=== PATIENT | male | born 1955 | race Caucasian/White ===

== ENCOUNTER → 2016-04-14 | Outpatient (CLI) | payer MEDICARE ==
[2015-05-31 09:24] VITALS: BP 137/77
[~2016-04-14] MED LIST: ALBU0.63 NEB; AMLO5TAB2 PO; ASPI-482 PO; FLUT12AE IH; HYDR-2672 PO; INSU100I13 SQ; INSU100I17 SQ; LOSA100T6 PO; MULT-208 PO; OMEP20CA9 PO; PROAIR HFA8.5 GM INH
--- NOTE | 2016-04-14 12:11 | RAD ---
PQRS Compliance Statement: One or more of the following individualized dose reduction techniques were utilized for this examination: 1. Automated exposure control 2. Adjustment of the mA and/or kV according to patient size 3. Use of iterative reconstruction technique CT of the chest without contrast, 04/14/2016: History: Chronic cough, shortness of breath, smoking history Noncontrast scans were obtained as requested. There is calcific plaquing of the thoracic aorta without evidence of any present. Several coronary artery calcifications are noted. The heart is of normal size. Several small mediastinal lymph nodes are seen without evidence of pathologic enlargement. There is a soft tissue mass in the anterior aspect of the left upper lobe abutting the pleura and the lateral aspect of the superior mediastinum. There is a small internal lucency suggesting cavitation. There are no air bronchograms within this mass. This process measures approximately 9.4 cm in greatest width, 5 cm AP and 5.4 cm in craniocaudad extent. There are minimal adjacent streaky and groundglass opacities. This process extends down to the anterior superior aspect of the left hilum. No definite underlying hilar mass or separate adenopathy is seen. No other pulmonary mass is seen. The right lung is clear. There is no evidence of pleural fluid. There are mild scattered degenerative changes in the spine. Limited views of the upper abdomen demonstrate splenomegaly. The hepatic contour appears irregular suggesting cirrhosis. IMPRESSION: 1. Large peripheral left upper lobe pulmonary mass suggesting a lung malignancy. Dense consolidation on an inflammatory basis or a large pulmonary infarct are less likely possibilities 2. Calcific plaquing of the aorta and coronary arteries. 3. Splenomegaly. 4. Hepatic cirrhosis.
== END | disposition home or self-care (01) ==
LOC: CT 07:53
PROVIDERS: ATTEND Internal Medicine Pulmonary Disease
DX: Z12.9 Encounter for screening for malignant neoplasm, site unspecified (principal); R05 Cough; I25.10 Atherosclerotic heart disease of native coronary artery without angina pectoris; R16.1 Splenomegaly, not elsewhere classified; K74.60 Unspecified cirrhosis of liver; R06.02 Shortness of breath
CPT/HCPCS: 71250

== ENCOUNTER → 2016-05-30 | Outpatient (CLI) | payer MEDICARE ==
[2015-05-31 09:24] VITALS: BP 137/77
--- NOTE | 2016-05-30 16:27 | RAD ---
CT of the chest without contrast, 05/30/2016: History: Follow-up lung lesion Noncontrast scans were obtained as requested and compared to a study from 04/14/2016. The abnormal densities in the anterior aspect of the left upper lobe have regressed. This portion of the lung is better aerated. The residual density is discoid in configuration extending from the hilum to the pleura anteriorly. There is minimal atelectasis posterolaterally in the left base. No significant consolidation is identified in the left lower lobe or right lung. No pleural fluid is present. There is mild calcific plaquing of the thoracic aorta minimal coronary artery calcification is present. Small mediastinal lymph nodes are seen without evidence of pathologic enlargement. The hilum cannot be optimally evaluated in the absence of vascular opacification. The central bronchi are widely patent. Again noted is splenomegaly with irregularity of the hepatic contour suggesting hepatic cirrhosis. IMPRESSION: 1. Improving left upper lobe consolidation compatible with resolving pneumonia or a pulmonary infarct. Underlying neoplasm cannot be entirely excluded. 2. No new abnormality is detected. PQRS Compliance Statement: One or more of the following individualized dose reduction techniques were utilized for this examination: 1. Automated exposure control 2. Adjustment of the mA and/or kV according to patient size 3. Use of iterative reconstruction technique
== END | disposition home or self-care (01) ==
LOC: CT 15:11
PROVIDERS: ATTEND Internal Medicine Pulmonary Disease
DX: R91.1 Solitary pulmonary nodule (principal)
CPT/HCPCS: 71250

== ENCOUNTER → 2016-10-02 | Outpatient (CLI) | payer BC ==
[2015-05-31 09:24] VITALS: BP 137/77
[~2016-10-02] MED LIST changes: -HYDR-2672 PO; +HYDR-2766 PO
--- NOTE | 2016-10-02 08:40 | RAD ---
Indication:Right-sided abdominal pain Grayscale images of the abdomen were obtained. Comparison none Liver:The contour the liver has a somewhat nodular appearance compatible with cirrhosis. There is a soft tissue mass measuring approximately 4 cm in greatest dimension adjacent to the liver. This probably reflects an accessory lobe. A mass is not entirely excluded but is felt less likely. Further imaging evaluation of the abdomen could be obtained with CT, ideally with IV contrast. Gallbladder:The patient is status post cholecystectomy. The common bile duct diameter of approximately 8 mm is within normal limits given the postcholecystectomy state Spleen:Enlarged. This, in conjunction with the liver findings is compatible with cirrhosis and associated portal hypertension Pancreas:The head and visualized proximal body appeared normal. The more distal body and tail were obscured Kidneys:Normal Abdominal aorta and IVC:The visualized inferior vena cava appeared normal. Only the most proximal abdominal aorta was seen. The mid and distal abdominal aorta were obscured by gas Ancillary findings:None Impression:Hepatic and splenic findings compatible with cirrhotic liver and associated portal hypertension. 4 cm soft tissue mass adjacent to the liver probably reflecting accessory lobe. A soft tissue mass is not entirely excluded. Additional evaluation could be obtained with a contrast CT examination of the abdomen Midline structures partially obscured. No definite acute finding seen. Status post cholecystectomy
== END | disposition home or self-care (01) ==
LOC: US 07:03
PROVIDERS: ATTEND Nurse Practitioner Adult Health
DX: R10.31 Right lower quadrant pain (principal); Z90.49 Acquired absence of other specified parts of digestive tract
CPT/HCPCS: 76700